=== PATIENT | male | born 1990 | race Caucasian/White ===

== ENCOUNTER 2024-01-28 10:27 | Emergency (ER) | payer SELFPAY ==
[~2024-01-28] VITALS: Ht 172.7 cm; Wt 82.0 kg
[2024-01-28 10:30] VITALS: O2SAT 98
[2024-01-28] MEDS: ACETAMINOPHEN 325MG TABLET PO ONE (11:03)
[2024-01-28] MEDS ORDERED: IBUP-2028 PO (11:34)
[2024-01-28 12:08] VITALS: BP 132/93; PULSE 85; RESP 18; TEMP 36.72516; O2SAT 99
== END 2024-01-28 12:09 | disposition home or self-care (01) ==
LOC: ER 10:27
DX: M54.9 Dorsalgia, unspecified (principal); M25.521 Pain in right elbow; M79.604 Pain in right leg; R51.9 Headache, unspecified
CPT/HCPCS: 73080; 70450; 70486; 99284; Z7610 ×3